=== PATIENT | female | born 1975 | race African-American/Black ===

== ENCOUNTER → 2017-04-22 | Outpatient (CLI) | payer OTHER ==
--- NOTE | 2017-04-22 15:02 | RAD ---
DATE: 04/22/2017 EXAM: DIGITAL DIAGNOSTIC BILATERAL, BREAST LEFT HISTORY: Breast lump COMPARISON: None available This study was interpreted with the benefit of Computerized Aided Detection (CAD). The breast parenchyma shows scattered fibroglandular densities. Breast parenchyma level B. FINDINGS: The patient reports that the area of previous palpable concern was in the upper outer left breast, although she cannot pinpoint a specific lump at this time. There are patchy fibroglandular densities present in the upper outer quadrants of both breasts, left greater than right. Spot compression views of the upper outer quadrant of the left breast were also obtained. A possible focal nodule seen on the left spot compression mediolateral view cannot be confirmed on the cc views. There is a tiny benign-appearing lymph node type density in the axillary tail of region of left breast. No focal right breast nodule is seen. Scattered benign type calcifications are present. No suspicious microcalcifications are evident. Left breast ultrasound, 04/22/2017: A targeted ultrasound exam of the upper outer quadrant of the left breast was performed. Normal heterogeneous fibroglandular shadows are seen. No breast mass is identified. IMPRESSION: Mild breast asymmetry with increased patchy fibroglandular shadows in the upper outer quadrant of the left breast compared to the right. A targeted ultrasound exam of that region did not demonstrate a discrete mass. In the absence of prior mammograms to establish stability, clinical surveillance and follow-up left mammography beginning in 6 months is suggested. BI-RADS CATEGORY: 3 PROBABLY BENIGN FINDING(S)-SHORT INTERVAL FOLLOW-UP SUGGESTED RECOMMENDED FOLLOW-UP: 6M 6 MONTH FOLLOW-UP PQRS compliance statement: Patient information was entered into a reminder system with a target due date for the next mammogram. Mammography is a sensitive method for finding small breast cancers, but it does not detect them all and is not a substitute for careful clinical examination. A negative mammogram does not negate a clinically suspicious finding and should not result in delay in biopsying a clinically suspicious abnormality. "Our facility is accredited by the [employer] Mammography Program."
== END | disposition home or self-care (01) ==
LOC: MAMMO 13:07
PROVIDERS: ATTEND Obstetrics & Gynecology
DX: N64.89 Other specified disorders of breast (principal); I25.10 Atherosclerotic heart disease of native coronary artery without angina pectoris; Z01.419 Encounter for gynecological examination (general) (routine) without abnormal findings; N63.20 Unspecified lump in the left breast, unspecified quadrant
CPT/HCPCS: 76641; G0204; 77066